=== PATIENT | male | born 1980 | race Caucasian/White ===

== ENCOUNTER 2021-09-16 16:49 | Inpatient (IN) | payer OTHER ==
[~2021-09-16] VITALS: Ht 157.5 cm; Wt 65.8 kg
[2021-09-16] MEDS ORDERED: ACETAMINOPHEN 500 MG TABLET PO ONE (19:15)
[2021-09-16] MEDS ORDERED: DOXYCYCLINE HYCLATE 100 MG TABLET PO ONE (19:15)
[2021-09-16] MEDS ORDERED: 0.9% SODIUM CHLORIDE 10 ML SYRINGE IVP PRN ×2 (20:00→22:30)
[2021-09-16 20:14] LABS: BASOPHILS % (AUTO) 0.3 % (0.0-2.0); EOSINOPHILS % (AUTO) 1.5 % (1.0-6.0); HEMATOCRIT 40.9 % (41-53); HEMOGLOBIN 14.5 g/dL (13.5-17.5); LYMPHOCYTES # (AUTO) 2.4 K/uL (1.0-4.8); LYMPHOCYTES % (AUTO) 20.3 % (22.0-44.0); MEAN CORPUSCULAR HEMOGLOBIN 32.4 pg (26.0-34.0); MEAN CORPUSCULAR HGB CONC 35.5 G/dL (31.0-37.0); MEAN CORPUSCULAR VOLUME 91 fL (80-100); MONOCYTES # (AUTO) 1.1 K/uL (0.1-1.0); MONOCYTES % (AUTO) 9.4 % (2.0-9.0); NEUTROPHILS # (AUTO) 8.3 K/uL (1.8-7.7); NEUTROPHILS % (AUTO) 68.5 % (40.0-70.0); PLATELET COUNT (AUTO) 293 K/uL (150-450); RED BLOOD CELL COUNT(AUTO) 4.49 MIL/uL (4.50-5.90); RED CELL DISTRIBUTION WIDTH 13.1 % (11.5-14.5)
[2021-09-16 20:48] LABS: LACTIC ACID 1.2 mmol/L (0.4-2.0)
[2021-09-16 20:56] LABS: ANION GAP 6 mmol/L (8-16); CALCIUM, TOTAL 8.6 mg/dL (8.8-10.5); CARBON DIOXIDE 31 mmol/L (22-29); CHLORIDE 104 mmol/L (98-107); CREATININE 0.73 mg/dL (0.60-1.30); GLOMERULAR FILTR. RATE CALC > 60 mL/min (>60); GLUCOSE,RANDOM 98 mg/dL (70-110); POTASSIUM 4.1 mmol/L (3.5-5.1); SODIUM SERUM 141 mmol/L (136-145); UREA NITROGEN, BLOOD 16 mg/dL (7-18)
[2021-09-16 21:02] LABS: ALANINE AMINOTRANSFERASE 282 U/L (12-78); ALBUMIN 3.1 g/dL (3.4-5.0); ALKALINE PHOSPHATASE 77 U/L (46-116); ASPARTATE AMINOTRANSFERASE 139 U/L (15-37); BILIRUBIN,TOTAL 0.5 mg/dL (0.1-1.0)
[2021-09-16 21:22] LABS: TOTAL PROTEIN, SERUM 7.5 g/dL (6.4-8.2)
[2021-09-16 22:02] LABS: COVID AG,FIA SOURCE NASOPHARYNGEAL
[2021-09-16] MEDS ORDERED: ACETAMINOPHEN 325 MG TABLET PO PRN ×2 (22:30→22:45)
[2021-09-16] MEDS ORDERED: ONDANSETRON HCL 4 MG/2 ML VIAL IVP PRN ×2 (22:30→22:45)
[2021-09-16] MEDS ORDERED: SODIUM CHLORIDE 0.9% 2,000 ML IV ONE (22:30)
[2021-09-16 22:35] LABS: INR 1.1 (0.9-1.1)
[2021-09-16] MEDS ORDERED: SODIUM CHLORIDE 0.9% 100 ML ONE (22:35)
[2021-09-16] MEDS ORDERED: IOHEXOL 350 MG/ML 100 ML VIAL ONE (22:35)
[2021-09-16] MEDS ORDERED: BUPRENORPHINE HCL/NALOXONE HCL 8-2 MG SUBLINGUAL TABLET SL ONE (22:45)
[2021-09-16] MEDS ORDERED: PERTUSS(ACELL),DIPH,TET VAC/PF 0.5 ML SYRINGE IM. ONE (22:45)
[2021-09-16] MEDS ORDERED: MAGNESIUM HYDROXIDE SUSPENSION 30 ML UDCUP PO PRN (22:45)
[2021-09-16] MEDS ORDERED: ZOLPIDEM TARTRATE 5 MG TABLET PO PRN (22:45)
[2021-09-16] MEDS ORDERED: BISACODYL 10 MG RECTAL RECTAL SUPPOSITORY PR PRN (22:45)
[2021-09-16] MEDS: HEPARIN SODIUM,PORCINE 5,000 UNITS/ML VIAL SQ SCH (23:10)
[2021-09-16] MEDS ORDERED: PIPERACILLIN/TAZO 3.375 GM/D5W 50 ML IV ONE (23:15)
[2021-09-16 23:35] LABS: APPEARANCE,URINE CLEAR (CLEAR); BILIRUBIN,URINE NEGATIVE (NEGATIVE); GLUCOSE, URINE (UA) NEGATIVE (NEGATIVE); KETONES,URINE NEGATIVE (NEGATIVE); LEUKOCYTE ESTERASE ,URINE NEGATIVE (NEGATIVE); NITRATE,URINE NEGATIVE (NEGATIVE); OCCULT BLOOD,URINE NEGATIVE (NEGATIVE); PROTEIN,URINE NEGATIVE (NEGATIVE)
[2021-09-17] MEDS: MORPHINE SULFATE 2 MG/ML SYRINGE IVP PRN ×2 (01:41→10:09)
[2021-09-17] MEDS ORDERED: VANCOMYCIN HCL 1.5 GM in DEXTROSE 5%-WATER 250 ML IV ONE (02:00)
[2021-09-17 04:52] LABS: BASOPHILS % (AUTO) 0.4 % (0.0-2.0); EOSINOPHILS % (AUTO) 3.1 % (1.0-6.0); HEMATOCRIT 39.8 % (41-53); LYMPHOCYTES % (AUTO) 31.5 % (22.0-44.0); MEAN CORPUSCULAR HEMOGLOBIN 32.1 pg (26.0-34.0); MEAN CORPUSCULAR HGB CONC 35.1 G/dL (31.0-37.0); MEAN CORPUSCULAR VOLUME 91 fL (80-100); MONOCYTES % (AUTO) 10.1 % (2.0-9.0); NEUTROPHILS # (AUTO) 5.3 K/uL (1.8-7.7); NEUTROPHILS % (AUTO) 54.9 % (40.0-70.0); PLATELET COUNT (AUTO) 269 K/uL (150-450); RED BLOOD CELL COUNT(AUTO) 4.36 MIL/uL (4.50-5.90); RED CELL DISTRIBUTION WIDTH 13.3 % (11.5-14.5)
[2021-09-17 05:03] LABS: ANION GAP 3 mmol/L (8-16); CARBON DIOXIDE 30 mmol/L (22-29); CHLORIDE 107 mmol/L (98-107); CREATININE 0.64 mg/dL (0.60-1.30); GLOMERULAR FILTR. RATE CALC > 60 mL/min (>60); GLUCOSE,RANDOM 121 mg/dL (70-110); POTASSIUM 3.9 mmol/L (3.5-5.1); SODIUM SERUM 140 mmol/L (136-145); UREA NITROGEN, BLOOD 9 mg/dL (7-18)
[2021-09-17] MEDS: HEPARIN SODIUM,PORCINE 5,000 UNITS/ML VIAL SQ SCH ×2 (08:00→17:10)
[2021-09-17 08:37] VITALS: BP 141/80
[2021-09-17] MEDS ORDERED: SODIUM CHLORIDE 0.9% 500 ML IV ONE (09:20)
[2021-09-17] MEDS: DOCUSATE SODIUM 100 MG CAPSULE PO SCH ×2 (09:32→21:17)
[2021-09-17] MEDS: PANTOPRAZOLE SODIUM 40 MG DR TABLET PO SCH (09:32)
[2021-09-17] MEDS: VANCOMYCIN HCL 1 GM/D5% WATER 200 ML IV SCH ×2 (09:32→17:10)
[2021-09-17 15:35] VITALS: BP 119/77
[2021-09-17] MEDS: HYDROCODONE/ACETAMINOPHEN 5-325 MG TABLET PO PRN ×2 (17:15→21:17)
[2021-09-17 19:39] VITALS: BP 123/73
[2021-09-17 20:54] VITALS: BP 115/61
[2021-09-18] MEDS: VANCOMYCIN HCL 1 GM/D5% WATER 200 ML IV SCH ×3 (00:50→17:04)
[2021-09-18 03:55] VITALS: BP 108/68
[2021-09-18] MEDS: MORPHINE SULFATE 2 MG/ML SYRINGE IVP PRN ×4 (04:11→22:35)
[2021-09-18 06:50] LABS: BASOPHILS % (AUTO) 0.5 % (0.0-2.0); EOSINOPHILS % (AUTO) 2.2 % (1.0-6.0); HEMATOCRIT 42.8 % (41-53); HEMOGLOBIN 15.2 g/dL (13.5-17.5); LYMPHOCYTES # (AUTO) 2.3 K/uL (1.0-4.8); LYMPHOCYTES % (AUTO) 19.8 % (22.0-44.0); MEAN CORPUSCULAR HEMOGLOBIN 32.1 pg (26.0-34.0); MEAN CORPUSCULAR HGB CONC 35.4 G/dL (31.0-37.0); MEAN CORPUSCULAR VOLUME 91 fL (80-100); MONOCYTES # (AUTO) 1.1 K/uL (0.1-1.0); MONOCYTES % (AUTO) 9.2 % (2.0-9.0); NEUTROPHILS # (AUTO) 7.9 K/uL (1.8-7.7); NEUTROPHILS % (AUTO) 68.3 % (40.0-70.0); PLATELET COUNT (AUTO) 324 K/uL (150-450); RED BLOOD CELL COUNT(AUTO) 4.72 MIL/uL (4.50-5.90)
[2021-09-18 07:09] LABS: ANION GAP 3 mmol/L (8-16); CALCIUM, TOTAL 8.8 mg/dL (8.8-10.5); CARBON DIOXIDE 31 mmol/L (22-29); CHLORIDE 103 mmol/L (98-107); CREATININE 0.61 mg/dL (0.60-1.30); GLOMERULAR FILTR. RATE CALC > 60 mL/min (>60); GLUCOSE,RANDOM 105 mg/dL (70-110); POTASSIUM 3.7 mmol/L (3.5-5.1); SODIUM SERUM 137 mmol/L (136-145); UREA NITROGEN, BLOOD 10 mg/dL (7-18); VANCOMYCIN,RANDOM 16.2 mcg/mL (25.0-50.0)
[2021-09-18 08:00] VITALS: BP 124/79
[2021-09-18] MEDS: HEPARIN SODIUM,PORCINE 5,000 UNITS/ML VIAL SQ SCH ×3 (08:00→17:04)
[2021-09-18] MEDS: DOCUSATE SODIUM 100 MG CAPSULE PO SCH ×2 (09:00→19:58)
[2021-09-18] MEDS: PANTOPRAZOLE SODIUM 40 MG DR TABLET PO SCH (09:00)
[2021-09-18 15:39] VITALS: BP 148/63
[2021-09-18] MEDS ORDERED: SODIUM CHLORIDE 0.9% 500 ML IV ONE (17:15)
[2021-09-18] MEDS: HYDROCODONE/ACETAMINOPHEN 5-325 MG TABLET PO PRN (18:32)
[2021-09-18 20:07] VITALS: BP 129/73
[2021-09-19] MEDS: HEPARIN SODIUM,PORCINE 5,000 UNITS/ML VIAL SQ SCH ×4 (00:07→23:59)
[2021-09-19] MEDS: VANCOMYCIN HCL 1 GM/D5% WATER 200 ML IV SCH ×3 (01:01→16:29)
[2021-09-19] MEDS: MORPHINE SULFATE 2 MG/ML SYRINGE IVP PRN ×5 (03:37→20:31)
[2021-09-19 05:11] VITALS: BP 113/71
[2021-09-19] MEDS ORDERED: ETHYL ALCOHOL 62% ANTISEPTIC NASAL INHALANT 0.6 ML AMPUL NASAL ONE (06:00)
[2021-09-19] MEDS ORDERED: RINGERS SOLUTION,LACTATED 1,000 ML IV ONE ×2 (06:00→06:04)
[2021-09-19] MEDS ORDERED: VANCOMYCIN HCL 1 GM/VIAL ONE (06:19)
[2021-09-19] MEDS ORDERED: FentaNYL CITRATE PF 100 MCG/2 ML VIAL IVP PRN (06:45)
[2021-09-19] MEDS ORDERED: VANCOMYCIN HCL 1 GM/VIAL TP ONE (07:00)
[2021-09-19] MEDS: OXYGEN THERAPY IH SCH ×2 (08:00→20:00)
[2021-09-19] MEDS: PANTOPRAZOLE SODIUM 40 MG DR TABLET PO SCH (08:23)
[2021-09-19] MEDS: DOCUSATE SODIUM 100 MG CAPSULE PO SCH ×2 (08:23→20:31)
[2021-09-19 08:56] VITALS: BP 124/78
[2021-09-19 09:20] LABS: BASOPHILS % (AUTO) 0.3 % (0.0-2.0); EOSINOPHILS % (AUTO) 0.9 % (1.0-6.0); HEMATOCRIT 44.2 % (41-53); HEMOGLOBIN 15.3 g/dL (13.5-17.5); LYMPHOCYTES # (AUTO) 1.7 K/uL (1.0-4.8); LYMPHOCYTES % (AUTO) 13.6 % (22.0-44.0); MEAN CORPUSCULAR HEMOGLOBIN 31.8 pg (26.0-34.0); MEAN CORPUSCULAR HGB CONC 34.6 G/dL (31.0-37.0); MEAN CORPUSCULAR VOLUME 92 fL (80-100); MONOCYTES # (AUTO) 0.8 K/uL (0.1-1.0); MONOCYTES % (AUTO) 6.2 % (2.0-9.0); NEUTROPHILS # (AUTO) 9.9 K/uL (1.8-7.7); PLATELET COUNT (AUTO) 339 K/uL (150-450); RED BLOOD CELL COUNT(AUTO) 4.81 MIL/uL (4.50-5.90)
[2021-09-19 09:33] LABS: ANION GAP 8 mmol/L (8-16); CALCIUM, TOTAL 8.8 mg/dL (8.8-10.5); CARBON DIOXIDE 31 mmol/L (22-29); CHLORIDE 102 mmol/L (98-107); CREATININE 0.78 mg/dL (0.60-1.30); GLOMERULAR FILTR. RATE CALC > 60 mL/min (>60); GLUCOSE,RANDOM 155 mg/dL (70-110); POTASSIUM 4.1 mmol/L (3.5-5.1); SODIUM SERUM 141 mmol/L (136-145); UREA NITROGEN, BLOOD 10 mg/dL (7-18)
[2021-09-19 15:29] VITALS: BP 132/76
[2021-09-19] MEDS: PIPERACILLIN/TAZO 3.375 GM/D5W 50 ML IV SCH (18:58)
[2021-09-19 20:13] VITALS: BP 132/78
[2021-09-20] MEDS: VANCOMYCIN HCL 1 GM/D5% WATER 200 ML IV SCH ×2 (00:33→07:55)
[2021-09-20] MEDS: MORPHINE SULFATE 2 MG/ML SYRINGE IVP PRN ×5 (00:38→20:55)
[2021-09-20 04:45] VITALS: BP 115/69
[2021-09-20] MEDS ORDERED: FentaNYL CITRATE PF 100 MCG/2 ML VIAL IVP ONE (05:39)
[2021-09-20] MEDS ORDERED: MIDAZOLAM HCL 2 MG/2 ML VIAL IVP ONE (05:39)
[2021-09-20] MEDS: PIPERACILLIN/TAZO 3.375 GM/D5W 50 ML IV SCH ×4 (05:53→18:10)
[2021-09-20 07:23] LABS: ALANINE AMINOTRANSFERASE 232 U/L (12-78); ALBUMIN 2.7 g/dL (3.4-5.0); ALKALINE PHOSPHATASE 84 U/L (46-116); ANION GAP 5 mmol/L (8-16); ASPARTATE AMINOTRANSFERASE 133 U/L (15-37); BILIRUBIN,TOTAL 0.5 mg/dL (0.1-1.0); CALCIUM, TOTAL 8.7 mg/dL (8.8-10.5); CARBON DIOXIDE 29 mmol/L (22-29); CHLORIDE 104 mmol/L (98-107); CREATININE 0.65 mg/dL (0.60-1.30); GLOMERULAR FILTR. RATE CALC > 60 mL/min (>60); GLUCOSE,RANDOM 118 mg/dL (70-110); POTASSIUM 3.8 mmol/L (3.5-5.1); SODIUM SERUM 138 mmol/L (136-145); TOTAL PROTEIN, SERUM 7.5 g/dL (6.4-8.2); UREA NITROGEN, BLOOD 10 mg/dL (7-18); VANCOMYCIN,RANDOM 30.1 mcg/mL (25.0-50.0)
[2021-09-20] MEDS: DOCUSATE SODIUM 100 MG CAPSULE PO SCH ×2 (07:54→20:54)
[2021-09-20] MEDS: HEPARIN SODIUM,PORCINE 5,000 UNITS/ML VIAL SQ SCH ×2 (07:54→16:31)
[2021-09-20] MEDS: PANTOPRAZOLE SODIUM 40 MG DR TABLET PO SCH (07:54)
[2021-09-20 08:00] VITALS: BP 111/71
[2021-09-20] MEDS: OXYGEN THERAPY IH SCH ×2 (08:00→20:54)
[2021-09-20] MEDS: HYDROCODONE/ACETAMINOPHEN 5-325 MG TABLET PO PRN ×2 (08:06→18:15)
[2021-09-20] MEDS: VANCOMYCIN HCL 1.25 GM in DEXTROSE 5%-WATER 250 ML IV SCH (16:30)
[2021-09-20 16:41] VITALS: BP 113/69
[2021-09-20] MEDS ORDERED: SODIUM CHLORIDE 0.9% 0 ML IV ONE (17:43)
[2021-09-20 19:55] VITALS: BP 115/57
[2021-09-20] MEDS ORDERED: SODIUM CHLORIDE 0.9% 250 ML IV ONE (20:52)
[2021-09-21] MEDS: PIPERACILLIN/TAZO 3.375 GM/D5W 50 ML IV SCH ×5 (00:07→23:41)
[2021-09-21] MEDS: HEPARIN SODIUM,PORCINE 5,000 UNITS/ML VIAL SQ SCH ×4 (00:17→23:46)
[2021-09-21] MEDS: VANCOMYCIN HCL 1.25 GM in DEXTROSE 5%-WATER 250 ML IV SCH ×3 (00:56→16:15)
[2021-09-21] MEDS: MORPHINE SULFATE 2 MG/ML SYRINGE IVP PRN ×2 (00:56→20:37)
[2021-09-21] MEDS: HYDROCODONE/ACETAMINOPHEN 5-325 MG TABLET PO PRN ×3 (02:18→16:15)
[2021-09-21 04:15] VITALS: BP 104/63
[2021-09-21 07:29] LABS: ANION GAP 8 mmol/L (8-16); C-REACTIVE PROTEIN QUANT 1.86 mg/dL (0.00-0.30); CALCIUM, TOTAL 8.9 mg/dL (8.8-10.5); CARBON DIOXIDE 29 mmol/L (22-29); CHLORIDE 104 mmol/L (98-107); CREATININE 0.68 mg/dL (0.60-1.30); GLOMERULAR FILTR. RATE CALC > 60 mL/min (>60); GLUCOSE,RANDOM 102 mg/dL (70-110); POTASSIUM 4.1 mmol/L (3.5-5.1); SODIUM SERUM 141 mmol/L (136-145); UREA NITROGEN, BLOOD 15 mg/dL (7-18)
[2021-09-21 07:46] VITALS: BP 86/54
[2021-09-21 08:38] VITALS: BP 104/54
[2021-09-21] MEDS: DOCUSATE SODIUM 100 MG CAPSULE PO SCH ×2 (08:46→20:36)
[2021-09-21] MEDS: PANTOPRAZOLE SODIUM 40 MG DR TABLET PO SCH (08:53)
[2021-09-21] MEDS: OXYGEN THERAPY IH SCH ×2 (08:57→20:10)
[2021-09-21 11:30] LABS: BASOPHILS % (AUTO) 0.9 % (0.0-2.0); EOSINOPHILS % (AUTO) 4.8 % (1.0-6.0); HEMATOCRIT 43.3 % (41-53); LYMPHOCYTES % (AUTO) 27.3 % (22.0-44.0); MEAN CORPUSCULAR HEMOGLOBIN 31.7 pg (26.0-34.0); MEAN CORPUSCULAR HGB CONC 34.6 G/dL (31.0-37.0); MEAN CORPUSCULAR VOLUME 92 fL (80-100); MONOCYTES # (AUTO) 0.9 K/uL (0.1-1.0); MONOCYTES % (AUTO) 12.1 % (2.0-9.0); NEUTROPHILS % (AUTO) 54.9 % (40.0-70.0); PLATELET COUNT (AUTO) 406 K/uL (150-450); RED BLOOD CELL COUNT(AUTO) 4.73 MIL/uL (4.50-5.90); RED CELL DISTRIBUTION WIDTH 12.9 % (11.5-14.5)
[2021-09-21 16:26] VITALS: BP 107/57
[2021-09-21 19:29] VITALS: BP 103/59
[2021-09-21 20:37] VITALS: BP 135/75
[2021-09-22] MEDS: VANCOMYCIN HCL 1.25 GM in DEXTROSE 5%-WATER 250 ML IV SCH ×3 (00:33→16:07)
[2021-09-22] MEDS ORDERED: SODIUM CHLORIDE 0.9% 0 ML ONE (00:37)
[2021-09-22] MEDS ORDERED: SODIUM CHLORIDE 0.9% 250 ML IV ONE ×2 (00:37→12:30)
[2021-09-22 04:27] VITALS: BP 106/57
[2021-09-22] MEDS: PIPERACILLIN/TAZO 3.375 GM/D5W 50 ML IV SCH ×4 (05:25→23:39)
[2021-09-22] MEDS: MORPHINE SULFATE 2 MG/ML SYRINGE IVP PRN ×3 (05:25→23:39)
[2021-09-22 06:48] LABS: ALANINE AMINOTRANSFERASE 268 U/L (12-78); ALBUMIN 2.7 g/dL (3.4-5.0); ALKALINE PHOSPHATASE 73 U/L (46-116); ANION GAP 7 mmol/L (8-16); ASPARTATE AMINOTRANSFERASE 174 U/L (15-37); BILIRUBIN,TOTAL 0.3 mg/dL (0.1-1.0); CALCIUM, TOTAL 8.7 mg/dL (8.8-10.5); CARBON DIOXIDE 31 mmol/L (22-29); CHLORIDE 104 mmol/L (98-107); CREATININE 0.81 mg/dL (0.60-1.30); GLOMERULAR FILTR. RATE CALC > 60 mL/min (>60); GLUCOSE,RANDOM 100 mg/dL (70-110); POTASSIUM 4.1 mmol/L (3.5-5.1); SODIUM SERUM 142 mmol/L (136-145); TOTAL PROTEIN, SERUM 7.3 g/dL (6.4-8.2); UREA NITROGEN, BLOOD 11 mg/dL (7-18); VANCOMYCIN,RANDOM 24.8 mcg/mL (25.0-50.0)
[2021-09-22] MEDS: OXYGEN THERAPY IH SCH ×2 (08:00→19:33)
[2021-09-22 08:09] VITALS: BP 110/58
[2021-09-22] MEDS: HEPARIN SODIUM,PORCINE 5,000 UNITS/ML VIAL SQ SCH ×3 (09:00→23:40)
[2021-09-22] MEDS: DOCUSATE SODIUM 100 MG CAPSULE PO SCH ×2 (09:01→19:49)
[2021-09-22] MEDS: PANTOPRAZOLE SODIUM 40 MG DR TABLET PO SCH (09:01)
[2021-09-22] MEDS: HYDROCODONE/ACETAMINOPHEN 5-325 MG TABLET PO PRN ×2 (12:26→16:13)
[2021-09-22 15:01] VITALS: BP 106/68
[2021-09-22 19:41] VITALS: BP 115/57
[2021-09-23] MEDS: VANCOMYCIN HCL 1.25 GM in DEXTROSE 5%-WATER 250 ML IV SCH ×2 (00:42→08:05)
[2021-09-23 03:37] VITALS: BP 117/68
[2021-09-23] MEDS: PIPERACILLIN/TAZO 3.375 GM/D5W 50 ML IV SCH ×2 (05:48→11:49)
[2021-09-23] MEDS: OXYGEN THERAPY IH SCH (08:00)
[2021-09-23] MEDS: PANTOPRAZOLE SODIUM 40 MG DR TABLET PO SCH (08:07)
[2021-09-23] MEDS: DOCUSATE SODIUM 100 MG CAPSULE PO SCH (08:07)
[2021-09-23] MEDS: HEPARIN SODIUM,PORCINE 5,000 UNITS/ML VIAL SQ SCH (08:09)
[2021-09-23] MEDS: MORPHINE SULFATE 2 MG/ML SYRINGE IVP PRN (08:14)
[2021-09-23 08:20] VITALS: BP 103/67
[2021-09-23 09:15] LABS: ANION GAP 12 mmol/L (8-16); C-REACTIVE PROTEIN QUANT 0.52 mg/dL (0.00-0.30); CALCIUM, TOTAL 8.8 mg/dL (8.8-10.5); CARBON DIOXIDE 27 mmol/L (22-29); CHLORIDE 105 mmol/L (98-107); CREATININE 0.71 mg/dL (0.60-1.30); GLOMERULAR FILTR. RATE CALC > 60 mL/min (>60); GLUCOSE,RANDOM 97 mg/dL (70-110); SODIUM SERUM 144 mmol/L (136-145); UREA NITROGEN, BLOOD 13 mg/dL (7-18)
[2021-09-23] MEDS ORDERED: SULF-261 PO (10:56)
[2021-09-23] MEDS: HYDROCODONE/ACETAMINOPHEN 5-325 MG TABLET PO PRN (12:02)
[2021-09-27 11:07] LABS: HEPATITIS C AB (EIA) >11.0 s/co ratio (0.0-0.9); HEPATITIS C RT-PCR,QNT 5490000 IU/mL
== END 2021-09-23 13:30 | disposition home or self-care (01) | DRG 951 ==
LOC: EMS 16:53 → 6N 09-17 06:01
PROVIDERS: ADMIT Internal Medicine; ATTEND Internal Medicine
PROC: 0KN90ZZ Release Right Lower Arm and Wrist Muscle, Open Approach (ICD-10-PCS; 2021-09-19)
PROC: 0JBG0ZZ Excision of Right Lower Arm Subcutaneous Tissue and Fascia, Open Approach (ICD-10-PCS; principal; 2021-09-19 06:51)
DX: L03.113 Cellulitis of right upper limb (principal); R65.10 Systemic inflammatory response syndrome (SIRS) of non-infectious origin without acute organ dysfunction; F11.90 Opioid use, unspecified, uncomplicated; F15.90 Other stimulant use, unspecified, uncomplicated; L02.413 Cutaneous abscess of right upper limb; Z20.822 Contact with and (suspected) exposure to COVID-19; L02.511 Cutaneous abscess of right hand; F17.210 Nicotine dependence, cigarettes, uncomplicated
CPT/HCPCS: 73201; 80048; 80053; 80074; 80202; 81003; 83605; 85025; 85610; 86140; 87040; 87070; 87081; 87522; 90715; 97166; 99291; J1644; J2250; J2270; J2405; J2543; J3010; J3370; J7030; J7040; J7050; J7060; J7120; Q9967